=== PATIENT | female | born 1950 | race African-American/Black ===

== ENCOUNTER → 2016-11-12 | Day surgery (SDC) | payer OTHER ==
--- NOTE | 2016-11-12 20:25 | OP ---
DATE OF OPERATION: 11/12/2016 PREOPERATIVE DIAGNOSIS: Right breast mass, 9:30, 5 cm from the nipple. POSTOPERATIVE DIAGNOSIS: Right breast mass, 9:30, 5 cm from the nipple. PROCEDURE: Right ultrasound guided core biopsy with clip placement. ANESTHESIA: Local. ATTENDING SURGEON: Holland Fajardo M.D. DOOR SERVICEMAN: None. ESTIMATED BLOOD LOSS: Minimal. COMPLICATIONS: None. OPERATIVE REPORT: Patient was made aware of the risks and benefits of the procedure and consented. She was placed in the supine position. Under sterile conditions, 1% lidocaine for local anesthesia, a small ray was made in the skin. Using a 10-gauge suction biopsy via lateral approach under ultrasound guidance, 6 cores were obtained and submitted to pathology. Likewise, under ultrasound guidance a U-shaped clip was placed into the biopsy region. Well tolerated by patient. Steri-Strips and sterile bandage was applied. Postoperative the patient went to mammography for post procedure mammogram, after which she had a little bit of bleeding at the site, so the dressing was changed, including Steri-Strips and an Clint wrap was applied, which she was instructed to take off tomorrow morning. Will contact patient with results. HOLLAND FAJARDO M.D. [id number]
--- NOTE | 2016-11-13 11:23 | PATH ---
Surgical Pathology Report Patient Name: DB ESETS [facility]. Rec. #: [id number] /Age/Gender: 1950 (Age: 66) / F Account: [id number] Location: [facility] RADIOLOGY U Taken: 11/12/2016 Received: 11/12/2016 Reported: 11/13/2016 Physicians: Dakota Fajardo M.D. 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 Comment: Also see prior specimen [id number]. Electronically Signed Ron Hector M.D. Gross Description Received in formalin, labeled "right breast biopsy 9:30, 5 cmfn," is a 1.4 x 1.0 x 0.3 cm aggregate of multiple [place]-yellow, irregular to cylindrical portions of fibroadipose tissue admixed with blood clot. The formalin is filtered and the specimen is entirely submitted in one cassette. Time to formalin fixation: Less than one minute Total formalin fixation time: Approximately 9 hours. /11/12/201611/12/2016
== END | disposition home or self-care (01) ==
LOC: FRADUS-SUR 11:35
PROVIDERS: ATTEND Surgery Surgical Oncology
PROC: 0HBT3ZX Excision of Right Breast, Percutaneous Approach, Diagnostic (ICD-10-PCS; principal; 2016-11-12)
DX: N63 Unspecified lump in breast (principal); D24.1 Benign neoplasm of right breast
CPT/HCPCS: 19083; 87899; 88305-TC; A4648; G0206-TC